=== PATIENT | female | born 1970 | race Caucasian/White ===

== ENCOUNTER 2021-06-28 13:28 | Emergency (ER) | payer MEDICAID ==
[2021-06-28] MEDS ORDERED: Hyoscyamine 0.125 MG Tab.SL SL ONE (13:50)
[2021-06-28] MEDS ORDERED: HYDROmorphone 0.5 MG/0.5 ML Syringe IVPUSH ONE (13:50)
[2021-06-28] MEDS ORDERED: Metoclopramide 10 MG/2 ML SDV IVPUSH ONE (13:51)
[2021-06-28 13:57] VITALS: BP 100/59; PULSE 67
[2021-06-28] MEDS ORDERED: Dextrose 5%-0.9% NaCl 1,000 ML IV SCH (14:00)
[2021-06-28] MEDS ORDERED: Sodium Chloride 0.9% 10 ML Syringe FLUSH ONE (15:36)
[2021-06-28] MEDS ORDERED: Iopamidol 755 Mg/ML 100 ML Bottle IVPUSH ONE (15:36)
[2021-06-28] MEDS ORDERED: Sodium Chloride 0.9% 100 ML IV SCH (15:45)
== END 2021-06-28 16:27 | disposition home or self-care (01) ==
LOC: JD.ED 13:28
DX: K80.20 Calculus of gallbladder without cholecystitis without obstruction (principal); D18.01 Hemangioma of skin and subcutaneous tissue; J44.9 Chronic obstructive pulmonary disease, unspecified; Z72.0 Tobacco use
CPT/HCPCS: 36415; 74177; 76705; 80053; 83690; 85025; 86140; 96374; 96375; 99284; A9270; J1170; J2765; J7042; Q9967; 99285

== ENCOUNTER 2022-02-02 11:50 | Emergency (ER) | payer MEDICAID ==
[2022-02-02] MEDS ORDERED: OLANZapine 10 MG Vial IM ONE (12:06)
[2022-02-02] MEDS ORDERED: Midazolam 1 MG/ML 2 ML SDV IM ONE (12:07)
[2022-02-02] MEDS ORDERED: OLANZapine 10 MG Vial ONE (12:07)
[2022-02-02] MEDS ORDERED: LORazepam 2 MG/ML SDV ONE (12:08)
[2022-02-02] MEDS ORDERED: Midazolam 1 MG/ML 2 ML SDV ONE (12:10)
[2022-02-02] MEDS ORDERED: Sodium Chloride 0.9% 10 ML Syringe FLUSH PRN (12:18)
[2022-02-02] MEDS ORDERED: Sodium Chloride 0.9% 1,000 ML IV ONE (13:17)
[2022-02-02] MEDS ORDERED: LORazepam 2 MG/ML SDV IVPUSH ONE (13:18)
[2022-02-02 13:28] LABS: ACETAMINOPHEN 11 ug/mL (10-30); ESTIMATED GFR 90 mL/min (>60)
[2022-02-02] MEDS: Potassium Chloride 10 MEQ in Premix Bag 1 BAG IV SCH ×4 (14:44→18:13)
[2022-02-02] MEDS ORDERED: Sodium Chloride 0.9% 1,000 ML IV SCH (16:00)
[2022-02-03] MEDS ORDERED: LORazepam 2 MG/ML SDV IVPUSH ONE (01:38)
[2022-02-03] MEDS ORDERED: diphenhydrAMINE 50 MG/ML SDV IVPUSH ONE (01:39)
[2022-02-03 10:38] VITALS: BP 128/70; PULSE 97
[2022-02-03] MEDS ORDERED: OLANZapine 10 MG Vial IM ONE (11:41)
== END 2022-02-03 18:00 ==
LOC: JD.ED 11:50
DX: F29 Unspecified psychosis not due to a substance or known physiological condition (principal); J44.9 Chronic obstructive pulmonary disease, unspecified; Z20.822 Contact with and (suspected) exposure to COVID-19
CPT/HCPCS: 36415; 80053; 80143; 80179; 80306; 80307; 81001; 81025; 83605; 83735; 84443; 85025; 87635; 93005; 96361; 96365; 96366; 96372; 96375; 96376; 99285; J1200; J2060; J2250; J3480; J3490; J7030; 93010; 99283; U0002